=== PATIENT | female | born 1990 | race Caucasian/White ===

== ENCOUNTER 2016-08-28 16:35 | Emergency (ER) | payer OTHER | END 2016-08-28 19:35 | disposition home or self-care (01) | LOC: ER 16:35 | DX: J06.9 Acute upper respiratory infection, unspecified (principal); J02.9 Acute pharyngitis, unspecified; R05 Cough; Z79.3 Long term (current) use of hormonal contraceptives | CPT/HCPCS: 87070; 87400; 87880; 99283 ==